=== PATIENT | female | born 1990 | race Caucasian/White ===

== ENCOUNTER → 2017-06-02 | Outpatient (REF) | LOC: WSOH 17:30 | DX: Z02.89 Encounter for other administrative examinations (principal) ==

== ENCOUNTER → 2017-06-15 | Outpatient (REF) | LOC: WSOH 14:53 | DX: Z02.89 Encounter for other administrative examinations (principal) ==

== ENCOUNTER → 2020-03-11 | Outpatient (CLI) | payer BC | LOC: MC.RAD 14:01 | DX: N63.20 Unspecified lump in the left breast, unspecified quadrant (principal) ==

== ENCOUNTER 2021-02-07 09:10 | Outpatient (CLI) | payer BC ==
[~2021-02-07] VITALS: Ht 177.8 cm; Wt 90.0 kg
--- NOTE | 2021-02-07 09:10 | NUR ---
0910- 41.1 G1L0 arrives on unit with c/o ctx that started at 0400, and have gotten progressively worse this am. Ambualtory to LDR3 and changes into clean gown. Positive for movement, denies any LOF or VB. VS obained and assessment completed. 0925- SVE /2, VERONICA. Roles updated on patient. See physician notification. POC reviewed with patient and SO who verbalize understanding.
[2021-02-07] MEDS ORDERED: PRENATAL TABLET PO (09:50)
[2021-02-07 10:00] VITALS: BP 112/80; PULSE 68; TEMP 98.9
--- NOTE | 2021-02-07 10:15 | NUR ---
Roles on unit and to patient bedside.
--- NOTE | 2021-02-07 10:30 | NUR ---
1030- SVE /2, posterior and unchanged. Questions invited and answered. 1035- EFM off. Roles updated on patient, orders received. See physician notification. 1050- Discharge instructions reviewed. Patient verbalizes understanding. Patient off unit with SO.
[2021-02-07 10:35] VITALS: BP 117/85; PULSE 72
[2021-02-08] MEDS ORDERED: IBU600 MG PO (07:56)
== END 2021-02-07 10:50 | disposition home or self-care (01) ==
LOC: LDRO 09:10 → LDR 09:41 → LDRO 10:01 → LDR 10:01 → LDRO 10:50
DX: O62.9 Abnormality of forces of labor, unspecified (principal); Z3A.41 41 weeks gestation of pregnancy

== ENCOUNTER 2021-02-07 14:36 | Inpatient (IN) | payer BC ==
[2021-02-07] VITALS (34 sets, daily range): BP systolic 106–157; BP diastolic 58–93; PULSE 58–107; TEMP 98.2–98.9
[~2021-02-07] VITALS: Ht 177.8 cm; Wt 90.0 kg
[~2021-02-07 14:36] MED LIST: PRENATAL TABLET PO
--- NOTE | 2021-02-07 14:40 | NUR ---
1440- 41.1, G1L0 here on unit with c/o worsening ctx jamey 3-5min. Positive for movement. Denies any LOF. Reports some bloody show. Ambulatory to LDR5 with spouse. Changes into clean gown. EFM explained and placed x2. 1450- SVE by this RN . Dr. Dawson updated on patient, orders recevived. See physician notification. 1515- Plan of care reviewed with patient and spouse who verbalize understanding. Questions invited and answered. IV to right FA, routine labs obtained, IVF infusing. Consent forms explained and signed, VS obained, and assessment completed.
[2021-02-07 15:32] LABS: BASO % 0.3 % (0.0-2.0); GRAN # 12.9 (1.4-6.5); GRAN % 86.7 % (42.2-75.2); HEMATOCRIT 38.2 % (37.0-47.0); HEMOGLOBIN 13.4 g/dl (12.5-16.0); LYMPH # 1.2 (1.2-3.4); MEAN CELL VOLUME 88 fl (80.0-100.0); MEAN CORPUSCULAR HEMOGLOBIN 31 pg (27.0-31.0); MEAN CORPUSCULAR HGB CONC 35 g/dl (33.0-37.0); MEAN PLATELET VOLUME 9.1 fl (7.4-10.4); MONO # 0.6 (0.1-0.6); MONO % 4.3 % (1.7-9.3); PLATELET COUNT 209 K/mm3 (130-400); RED BLOOD COUNT 4.36 M/mm3 (4.10-5.30); REDCELL DISTRIBUTION WIDTH-CV 12.7 % (11.5-14.5)
--- NOTE | 2021-02-07 16:30 | NUR ---
1630- Patient to edge of bed for epidural placement. FHR difficult to trace due to maternal position. RN remains at bedside adj. EFM.
--- NOTE | 2021-02-07 17:42 | NUR ---
Roles to bedside, and reviews poc with patient.
--- NOTE | 2021-02-07 20:50 | NUR ---
2049- DR. CLINE AND THIS RN TO BEDSIDE FOR SVE. PATIENT COMPLETE AND +1 PER PROVIDER. PATIENT EDUCATED ON PUSHING AND ROOM PREPPED FOR DELIVERY. STAFF NOTIFIED OF PRACTICE PUSHING ABOUT TO BEGIN. DR. CLINE REMAINS ON UNIT DURING THIS TIME. 2057- FIRST PRACTICE PUSH WITH THIS RN. THIS RN REMAINS IN THE ROOM AND PUSHES WITH EVERY CONTRACTIONS. FHR TRACING INTERMITTENTLY DUE TO PUSHING. PATIENT TOLERATING WELL/ 2119- ROLES TO BEDSIDE TO ASSESS PUSHING. MAKING PROGRESS BUT STILL HAS SOME PUSHING TO DO. THIS RN REMAINS AT BEDSIDE PUSHING WITH THE PATIENT. 2139- ROLES TO BEDSIDE TO ASSESS PUSHING. PATIENT READY FOR PROVIDER TO BE IN THE ROOM AT THIS TIME. THIS RN AND PROVIDER SET UP FOR DELIVERY. THIS RN NOTIFIES NURSERY STAFF. 2149- OF VIABLE FEMALE INFANT. INFANT BULB SUCTIONED BY PROVIDER AND PLACED TO MOTHERS ABDOMEN. PROVIDER GAVE VERBAL ORDERS TO DO CORD GASSES FOR THE THICK MECONIUM AMNIOTIC FLUID. THIS RN CALLED CHARGE FOR ICE CUP AND CALLED RESPIRATORY TO NOTIFY THEM LABS WERE DRAWN. 2152- OF PLACENTA. PITOCIN CHANGED TO PROTOCOL OF 333ML/HR. PATIENT FUNDUS MASSAGED TO FIRM BY PROVIDER WITH SMALL TO MODERATE BLEEDING NOTED. PROVIDER BEGAN REPAIRS. NOTED A 2ND DEGREE TEAR AND REPAIRED IT. PROVIDER NOTED EBL TO BE 200 AFTER REPAIRS WERE DONE. 2199- REPAIRS DONE, PATIENT AND ROOM CLEANED UP. FUNDUS FIRM AND DOWN 2 FROM UMBILICUS. VITALS STABLE. NEW CHUX PAD, PERIPAD AND ICEPACK TO PERINEUM. RECOVERY STARTED.
[2021-02-08] VITALS (7 sets, daily range): BP systolic 111–127; BP diastolic 65–89; PULSE 71–101; TEMP 97.8–98.7
[2021-02-08] MEDS ORDERED: IBU600 MG PO (07:56)
--- NOTE | 2021-02-08 08:30 | NUR ---
Rests in bed, alert. Ibuprofen 600 mg given per request and as ordered.
--- NOTE | 2021-02-08 10:19 | NUR ---
Initial visit; Parents thanked for offering congratulations for the of their daughter. Beauty Therapist thanked family for choosing [place]/[facility].
[2021-02-09 07:00] VITALS: BP 113/80; PULSE 76; TEMP 97.7
== END 2021-02-09 15:50 | disposition home or self-care (01) | DRG 807 ==
LOC: LDRO 14:36 → LDR 14:40 → OB 14:40
PROVIDERS: ADMIT Obstetrics & Gynecology
PROC: 10E0XZZ Delivery of Products of Conception, External Approach (ICD-10-PCS; principal; 2021-02-07)
PROC: 0KQM0ZZ Repair Perineum Muscle, Open Approach (ICD-10-PCS; 2021-02-07)
PROC: 10907ZC Drainage of Amniotic Fluid, Therapeutic from Products of Conception, Via Natural or Artificial Opening (ICD-10-PCS; 2021-02-07)
DX: O48.0 Post-term pregnancy (principal); Z37.0 Single live birth; Z3A.41 41 weeks gestation of pregnancy; O77.0 Labor and delivery complicated by meconium in amniotic fluid; O70.1 Second degree perineal laceration during delivery; O62.9 Abnormality of forces of labor, unspecified
CPT/HCPCS: J2590; J7120

== ENCOUNTER 2024-01-09 08:46 | Inpatient (IN) | payer SELFPAY ==
[~2024-01-09] VITALS: Ht 177.8 cm; Wt 94.1 kg
[~2024-01-09 08:46] MED LIST changes: +IBU600 MG PO
[2024-01-11] VITALS (32 sets, daily range): BP systolic 91–148; BP diastolic 7–95; PULSE 58–100; TEMP 97.8–98.1
[2024-01-11] MEDS ORDERED: LR & Oxytocin 500 ML IV SCH ×2 (06:15)
[2024-01-11] MEDS ORDERED: LR 1,000 ML IV SCH (06:15)
--- NOTE | 2024-01-11 06:30 | NUR ---
PT ORIENTED TO ROOM AND CHANGED INTO GOWN. PT PLACED ON MONTIORS AND VS TAKEN. T CATAGORY 1. VS WNL. PT DENIES PAINFUL CX, VB AND LOF. IV STARTED AND LABS DRAWN.
[2024-01-11 08:04] LABS: BASO % 0.2 % (0.0-2.0); GRAN # 6.2 K/mm3 (1.4-6.5); GRAN % 73.7 % (42.2-75.2); HEMATOCRIT 38.9 % (37.0-47.0); HEMOGLOBIN 13.3 g/dl (12.5-16.0); LYMPH # 1.6 K/mm3 (1.2-3.4); LYMPH % 19.2 % (20.0-51.0); MEAN CELL VOLUME 92 fl (80.0-100.0); MEAN CORPUSCULAR HEMOGLOBIN 31 pg (27-31); MEAN CORPUSCULAR HGB CONC 34 g/dl (33.0-37.0); MEAN PLATELET VOLUME 9.6 fl (7.4-10.4); MONO # 0.5 K/mm3 (0.1-0.6); MONO % 6.5 % (1.7-9.3); PLATELET COUNT 197 K/mm3 (130-400); RED BLOOD COUNT 4.23 M/mm3 (4.10-5.30); REDCELL DISTRIBUTION WIDTH-CV 12.7 % (11.5-14.5)
--- NOTE | 2024-01-11 08:20 | NUR ---
ROLES AT BEDSIDE. CHECKING IN ON PT. DISCUSSED PLAN TO BREAK WATER LATER THIS MORNING.
--- NOTE | 2024-01-11 08:45 | NUR ---
PT UP AMBULATING IN THE POST. DIFFICULTY TRACING CX AND FHT AT THIS TIME.
--- NOTE | 2024-01-11 11:05 | NUR ---
DR CLINE AT BEDSIDE SVE 4 CM. AROM 1110. CLEAR FLUID NOTED. PT REQUESTING EPIDURAL AT THIS TIME.
[2024-01-11] MEDS ORDERED: ROPivacaine PF 0.2% 200 ML IV ONE (11:24)
--- NOTE | 2024-01-11 11:30 | NUR ---
1130- GENESIS AT BEDSIDE TALKING WITH PT ABOUT EPIDURAL. PT AGREES TO EPIDURAL. PT IS SITTING AT BEDSIDE. O2 AND BP MONITORS ON. VS STABLE. 1138- TEST DOSE. 1152- PT REPOSITIONED TO WEDGE LEFT GETTING MORE COMFORTABLE.
[2024-01-11] MEDS ORDERED: Naloxone 0.4 MG/ML VIAL IV PRN ×2 (12:00→15:45)
[2024-01-11] MEDS ORDERED: diphenhydrAMINE 50 MG/ML 1 ML VIAL IV PRN (12:00)
[2024-01-11] MEDS ORDERED: diphenhydrAMINE 25 MG CAP PO PRN (12:00)
[2024-01-11] MEDS ORDERED: ePHEDrine 50 MG/10 ML VIAL IV PRN (12:00)
[2024-01-11] MEDS ORDERED: Ondansetron 4 MG/2 ML VIAL IV PRN (12:00)
--- NOTE | 2024-01-11 15:21 | NUR ---
1451- SVE 1452- CALLED DR CLINE TO UPDATE THAT PT IS A LIP. DR CLINE SAID TO CALL HER BACK WHEN WE NEED HER. 1500- SVE COMPLETE +1. 1505- DR CLINE IS ON HER WAY. MAYNARD OUT. 151- DR CLINE AT BEDSIDE. PT BEGAN PUSHING. 152- SPONTANEOUS VAGINAL DELIVERY OF A VIABLE BABY GIRL BY DR CLINE. HAD A NUCHAL CORD THAT COULD NOT BE REDUCED SO WAS CLAMPED AND CUT BY DR CLINE. WAS PLACED ON MOTHERS ABDOMIN. CARE OF INFANT TAKEN OVER BY NURSERY NURSE ABDULAZIZ. WAS WIPED AND STIMULATED. FOB SHORTENED THE CORD WITH THE HELP OF DR CLINE. 1524- SPONTANEOUS DELIVERY OF PLACENTA BY DR CLINE. SECOND DEGREE PERINEAL REPAIR WAS COMPLETED BY DR CLINE. PITOCIN STARTED PER POLICY. PT REPOSITIONED. ICE PACK AND PAD PLACED.
[2024-01-11] MEDS ORDERED: oxyCODONE 5 MG TAB PO PRN (15:45)
[2024-01-11] MEDS ORDERED: Phenylephrine/Mineral Oil/Petrolatum 57 GM TUBE RC PRN (15:45)
[2024-01-11] MEDS ORDERED: Ibuprofen 800 MG TAB PO SCH (15:45)
[2024-01-11] MEDS ORDERED: Measles/Mumps/Rubella Virus Vaccine Live w Diluent 0.5 ML VIAL SQ SCH (15:45)
[2024-01-11] MEDS ORDERED: Magnes Hydrox (MOM) 80 MG/ML 30 ML CUP PO PRN (15:45)
[2024-01-11] MEDS ORDERED: Loratadine 10 MG TAB PO PRN (15:45)
[2024-01-11] MEDS ORDERED: Mag/Al Hydrox/Simeth Susp 30 ML CUP PO PRN (15:45)
[2024-01-11] MEDS ORDERED: Witch Hazel 50% Pads Bulk TUB TP PRN (15:45)
[2024-01-11] MEDS ORDERED: Acetaminophen 500 MG TAB PO SCH (15:45)
[2024-01-11] MEDS ORDERED: Sennosides/Docusate 8.6-50 MG TAB PO SCH (17:00)
--- NOTE | 2024-01-11 19:15 | NUR ---
Attempt up to bathroom, pt able to move R leg but unable to move L leg. Pericare performed, Christianne poe used to transfer pt to room.
[2024-01-11] MEDS ORDERED: traZODone 50 MG TAB PO PRN (21:00)
[2024-01-12] MEDS ORDERED: Acetaminophen 500 MG TAB PO SCH (01:00)
[2024-01-12] MEDS ORDERED: Ibuprofen 800 MG TAB PO SCH (03:00)
[2024-01-12] MEDS ORDERED: MOTRIN 800800 MG/TAB PO (08:00)
[2024-01-12 09:00] VITALS: BP 148/91; PULSE 96; TEMP 98.1
[2024-01-12] MEDS ORDERED: Prenatal Vitamins/Iron/FA TAB PO SCH (09:00)
--- NOTE | 2024-01-12 11:25 | NUR ---
Initial visit; Parents thanked Talent Acquisition Program Manager for offering congratulations and God's blessings for the of their daughter. Talent Acquisition Program Manager thanked family for choosing [place].
[2024-01-12 17:30] VITALS: BP 134/79; PULSE 69; TEMP 97.6
[2024-01-12 20:30] VITALS: BP 122/70; PULSE 57; TEMP 97.7
[2024-01-13 08:17] VITALS: BP 123/78; PULSE 75; TEMP 97.8
--- NOTE | 2024-01-13 13:14 | NUR ---
ALL DC PAPERWORK REVIEWED AND UNDERSTOOD BY PT AND SPOUSE. ALL FOLLOW UP APPOINTMENTS DISCUSSED. PT DENIES FURTHER QUESTIONS OR CONCERNS. ALL BELONGINGS ACCOUNTED FOR. PT AMBULATORY FROM UNIT IN STABLE CONDITION.
== END 2024-01-13 13:15 | disposition home or self-care (01) | DRG 560 ==
LOC: OB 08:46 → LDR 01-11 06:36 → OB 01-11 08:32 → LDR 01-11 09:26 → OB 01-11 19:30
PROVIDERS: ADMIT Obstetrics & Gynecology
PROC: 10E0XZZ Delivery of Products of Conception, External Approach (ICD-10-PCS; principal; 2024-01-11)
PROC: 10907ZC Drainage of Amniotic Fluid, Therapeutic from Products of Conception, Via Natural or Artificial Opening (ICD-10-PCS; 2024-01-11)
PROC: 3E033VJ Introduction of Other Hormone into Peripheral Vein, Percutaneous Approach (ICD-10-PCS; 2024-01-11)
DX: O43.893 Other placental disorders, third trimester (principal); Z37.0 Single live birth; O48.0 Post-term pregnancy; O70.1 Second degree perineal laceration during delivery; O69.1XX0 Labor and delivery complicated by cord around neck, with compression, not applicable or unspecified; Z3A.40 40 weeks gestation of pregnancy
CPT/HCPCS: J2590; J2795; J7120